=== PATIENT | male | born 1935 | race Two or more races ===

== ENCOUNTER 2017-05-28 06:16 | Outpatient (CLI) | payer OTHER ==
[~2017-05-28 06:16] MED LIST: ADVAIR 2501 DISK W/1; ASPIR 8181 MG; AZACOL; CLONAZEPAM0.5 MG; COZAAR50 MG; FENOFIBRATE54 MG; FOLIC ACID0.4 MG; LANSOPRAZOLE30 MG; LOSARTAN-HCTZ1 EAC1; MEMANTINE HCL10 MG; METOPROLOL SUCC50 MG
== END 2017-05-28 06:22 | disposition home or self-care (01) ==
LOC: LAB 06:16
DX: R31.29 Other microscopic hematuria (principal)

== ENCOUNTER 2017-05-28 08:00 | Outpatient (CLI) | payer OTHER | END 2017-05-28 08:08 | disposition home or self-care (01) | LOC: TOM 08:00 | DX: R31.0 Gross hematuria (principal); N32.81 Overactive bladder; F52.21 Male erectile disorder ==

== ENCOUNTER → 2017-07-06 | Outpatient (CLI) | payer OTHER | END | disposition home or self-care (01) | LOC: LAB 07:13 | DX: I10 Essential (primary) hypertension (principal); C64.9 Malignant neoplasm of unspecified kidney, except renal pelvis; J44.9 Chronic obstructive pulmonary disease, unspecified ==

== ENCOUNTER 2017-07-07 05:45 | Day surgery (SDC) | payer OTHER | END 2017-07-07 17:45 | disposition home or self-care (01) | LOC: CIR.AMB 05:45 | DX: C67.4 Malignant neoplasm of posterior wall of bladder (principal); N47.6 Balanoposthitis ==

== ENCOUNTER → 2017-07-10 | Emergency (ER) | payer OTHER ==
[~2017-07-10] VITALS: Ht 167.6 cm; Wt 68.9 kg
== END | disposition home or self-care (01) ==
LOC: ER 04:12
DX: R10.2 Pelvic and perineal pain (principal); T83.091A Other mechanical complication of indwelling urethral catheter, initial encounter; Y73.8 Miscellaneous gastroenterology and urology devices associated with adverse incidents, not elsewhere classified; Y92.89 Other specified places as the place of occurrence of the external cause

== ENCOUNTER 2018-04-20 11:11 | Outpatient (CLI) | payer OTHER | END 2018-04-20 11:25 | disposition home or self-care (01) | LOC: RAD 11:11 | DX: M25.511 Pain in right shoulder (principal) ==

== ENCOUNTER 2018-11-16 14:48 | Emergency (ER) | payer OTHER ==
[~2018-11-16] VITALS: Ht 167.6 cm; Wt 68.0 kg
[2018-11-16] MEDS ORDERED: ELIQUIS (16:08)
[2018-11-16] MEDS ORDERED: VITAMINA D (16:08)
== END 2018-11-16 18:56 | disposition home or self-care (01) ==
LOC: ER 14:48
DX: K50.90 Crohn's disease, unspecified, without complications (principal); R11.11 Vomiting without nausea

== ENCOUNTER → 2019-01-16 | Emergency (ER) | payer OTHER ==
[~2019-01-16] VITALS: Ht 167.6 cm; Wt 69.9 kg
[~2019-01-16] MED LIST changes: +ELIQUIS; +VITAMINA D
== END | disposition home or self-care (01) ==
LOC: ER 22:25
DX: K57.50 Diverticulosis of both small and large intestine without perforation or abscess without bleeding (principal); K80.80 Other cholelithiasis without obstruction; R10.31 Right lower quadrant pain; R10.32 Left lower quadrant pain

== ENCOUNTER 2019-04-11 12:32 | Emergency (ER) | payer OTHER ==
[~2019-04-11] VITALS: Ht 167.6 cm; Wt 67.1 kg
== END 2019-04-12 15:53 | disposition home or self-care (01) ==
LOC: ER 12:32
DX: K20.8 Other esophagitis (principal); K22.10 Ulcer of esophagus without bleeding; K44.9 Diaphragmatic hernia without obstruction or gangrene; K92.2 Gastrointestinal hemorrhage, unspecified; I10 Essential (primary) hypertension; C67.8 Malignant neoplasm of overlapping sites of bladder; K50.118 Crohn's disease of large intestine with other complication

== ENCOUNTER 2019-04-17 16:55 | Inpatient (IN) | payer OTHER ==
[2019-04-18] MEDS ORDERED: ELIQUIS2.5 MG (08:00)
[2019-04-18] MEDS ORDERED: MESALAMINE800 MG (08:01)
[2019-04-18] MEDS ORDERED: VITAMIN D10000 UNIT (08:02)
[2019-04-18] MEDS ORDERED: FOLIC ACID1 MG PO (08:16)
[2019-04-18] MEDS ORDERED: DOXAZOSIN MESYLA4 MG (08:20)
[2019-04-18] MEDS ORDERED: LOSARTAN POTAS100 MG (08:21)
[2019-04-18] MEDS ORDERED: TAMSULOSIN HCL0.4 MG (08:23)
[2019-04-18] MEDS ORDERED: DULOXETINE HCL60 MG (08:23)
[2019-04-20] MEDS ORDERED: CVS TUSSIN DM237 M2 PO (16:57)
[2019-04-20] MEDS ORDERED: AZITHROMYCIN500 MG PO ×2 (16:58)
[2019-04-20] MEDS ORDERED: NIFEDIPINE10 MG PO ×2 (16:58)
[2019-04-20] MEDS ORDERED: ROBITUSSIN15 MG PO ×2 (17:01)
== END 2019-04-20 17:21 | disposition home or self-care (01) | DRG 100 ==
LOC: MEDI 16:55
PROVIDERS: ADMIT Internal Medicine Cardiovascular Disease
PROC: B246ZZZ Ultrasonography of Right and Left Heart (ICD-10-PCS; 2019-04-17)
PROC: 8E0ZXY6 Isolation (ICD-10-PCS; 2019-04-17)
PROC: 3E0F7GC Introduction of Other Therapeutic Substance into Respiratory Tract, Via Natural or Artificial Opening (ICD-10-PCS; 2019-04-17)
PROC: 4A12X4Z Monitoring of Cardiac Electrical Activity, External Approach (ICD-10-PCS; 2019-04-17)
PROC: BW28ZZZ Computerized Tomography (CT Scan) of Head (ICD-10-PCS; principal; 2019-04-18)
PROC: B345ZZZ Ultrasonography of Bilateral Common Carotid Arteries (ICD-10-PCS; 2019-04-18)
PROC: B348ZZZ Ultrasonography of Bilateral Internal Carotid Arteries (ICD-10-PCS; 2019-04-18)
PROC: B030ZZZ Magnetic Resonance Imaging (MRI) of Brain (ICD-10-PCS; 2019-04-19)
DX: G40.209 Localization-related (focal) (partial) symptomatic epilepsy and epileptic syndromes with complex partial seizures, not intractable, without status epilepticus (principal); I50.43 Acute on chronic combined systolic (congestive) and diastolic (congestive) heart failure; I13.0 Hypertensive heart and chronic kidney disease with heart failure and stage 1 through stage 4 chronic kidney disease, or unspecified chronic kidney disease; C34.81 Malignant neoplasm of overlapping sites of right bronchus and lung; C79.11 Secondary malignant neoplasm of bladder; J44.1 Chronic obstructive pulmonary disease with (acute) exacerbation; I31.3 Pericardial effusion (noninflammatory); J45.41 Moderate persistent asthma with (acute) exacerbation; K51.80 Other ulcerative colitis without complications; J98.11 Atelectasis; J90 Pleural effusion, not elsewhere classified; I65.23 Occlusion and stenosis of bilateral carotid arteries; G31.89 Other specified degenerative diseases of nervous system; N18.2 Chronic kidney disease, stage 2 (mild); I11.0 Hypertensive heart disease with heart failure; I70.0 Atherosclerosis of aorta; K20.8 Other esophagitis; F02.80 Dementia in other diseases classified elsewhere, unspecified severity, without behavioral disturbance, psychotic disturbance, mood disturbance, and anxiety
CPT/HCPCS: 70552

== ENCOUNTER 2019-04-26 08:55 | Outpatient (CLI) | payer OTHER ==
[~2019-04-26 08:55] MED LIST changes: +AZITHROMYCIN500 MG PO; +CVS TUSSIN DM237 M2 PO; +DOXAZOSIN MESYLA4 MG; +DULOXETINE HCL60 MG; +ELIQUIS2.5 MG; +FOLIC ACID1 MG PO; +LOSARTAN POTAS100 MG; +MESALAMINE800 MG; +NIFEDIPINE10 MG PO; +ROBITUSSIN15 MG PO; +TAMSULOSIN HCL0.4 MG; +VITAMIN D10000 UNIT
== END 2019-04-26 09:10 | disposition home or self-care (01) ==
LOC: NUCLEAR 08:55
DX: C34.82 Malignant neoplasm of overlapping sites of left bronchus and lung (principal); C79.89 Secondary malignant neoplasm of other specified sites; M81.0 Age-related osteoporosis without current pathological fracture
CPT/HCPCS: 78815; A9552

== ENCOUNTER 2019-05-11 08:17 | Outpatient (CLI) | payer OTHER | END 2019-05-11 08:19 | disposition home or self-care (01) | LOC: SONOGRAMA 08:17 | DX: E04.1 Nontoxic single thyroid nodule (principal) ==

== ENCOUNTER 2019-09-21 08:22 | Emergency (ER) | payer OTHER ==
[~2019-09-21] VITALS: Ht 167.6 cm; Wt 68.0 kg
[2019-09-21] MEDS ORDERED: ASACOL HD800 MG (08:45)
== END 2019-09-22 09:19 | disposition home or self-care (01) ==
LOC: ER 08:22
DX: K56.690 Other partial intestinal obstruction (principal); K50.90 Crohn's disease, unspecified, without complications; K57.30 Diverticulosis of large intestine without perforation or abscess without bleeding; R10.32 Left lower quadrant pain

== ENCOUNTER 2020-08-21 09:14 | Outpatient (CLI) | payer OTHER ==
[~2020-08-21 09:14] MED LIST changes: +ASACOL HD800 MG
== END 2020-08-21 09:24 | disposition home or self-care (01) ==
LOC: SONOGRAMA 09:14 → MAMO-SONO 09:30
PROVIDERS: ATTEND Internal Medicine Cardiovascular Disease
DX: M25.512 Pain in left shoulder (principal)

== ENCOUNTER 2021-03-25 10:14 | Emergency (ER) | payer OTHER ==
[~2021-03-25] VITALS: Ht 162.6 cm; Wt 68.0 kg
[2021-03-25] MEDS ORDERED: ADALAT CC30 MG (10:29)
[2021-03-25] MEDS ORDERED: PANTOPRAZOLE SO40 M2 (10:29)
[2021-03-25] MEDS ORDERED: PAROXETINE7.5 MG (10:30)
[2021-03-25] MEDS ORDERED: CYMBALTA60 MG (10:30)
== END 2021-03-25 14:28 | disposition home or self-care (01) ==
LOC: ER 10:14
DX: K29.70 Gastritis, unspecified, without bleeding (principal); K50.90 Crohn's disease, unspecified, without complications; I10 Essential (primary) hypertension

== ENCOUNTER 2021-04-17 09:00 | Emergency (ER) | payer OTHER ==
[~2021-04-17] VITALS: Ht 152.4 cm; Wt 68.0 kg
[~2021-04-17 09:00] MED LIST changes: +ADALAT CC30 MG; +CYMBALTA60 MG; +PANTOPRAZOLE SO40 M2; +PAROXETINE7.5 MG
== END 2021-04-17 15:12 | disposition home or self-care (01) ==
LOC: ER 09:00
DX: K29.70 Gastritis, unspecified, without bleeding (principal); K50.90 Crohn's disease, unspecified, without complications; G30.9 Alzheimer's disease, unspecified; F02.80 Dementia in other diseases classified elsewhere, unspecified severity, without behavioral disturbance, psychotic disturbance, mood disturbance, and anxiety; E11.9 Type 2 diabetes mellitus without complications

== ENCOUNTER 2021-04-29 08:19 | Outpatient (CLI) | payer OTHER | END 2021-04-29 08:34 | disposition home or self-care (01) | LOC: SONOGRAMA 08:19 | PROVIDERS: ATTEND Internal Medicine Cardiovascular Disease | DX: K50.90 Crohn's disease, unspecified, without complications (principal); Z87.19 Personal history of other diseases of the digestive system ==

== ENCOUNTER → 2022-05-21 | Emergency (ER) | payer OTHER ==
[~2022-05-21] VITALS: Ht 167.6 cm; Wt 65.8 kg
[~2022-05-21] MED LIST changes: +CLONAZEPAM0.5 MG PO; +COZAAR100 MG PO; +LIPITOR40 M1 PO; +NAMENDA10 MG PO; +PAROXETINE7.5 MG PO; +PROTONIX40 M1 PO
== END | disposition home or self-care (01) ==
LOC: ER 16:42
DX: S09.8XXA Other specified injuries of head, initial encounter (principal); W18.30XA Fall on same level, unspecified, initial encounter; Y93.89 Activity, other specified; Y92.9 Unspecified place or not applicable; I10 Essential (primary) hypertension; S49.82XA Other specified injuries of left shoulder and upper arm, initial encounter; S79.812A Other specified injuries of left hip, initial encounter

== ENCOUNTER 2022-06-15 14:42 | Emergency (ER) | payer OTHER ==
[~2022-06-15] VITALS: Ht 167.6 cm; Wt 63.5 kg
[2022-06-15] MEDS ORDERED: ELIQUIS2.5 MG PO (15:21)
[2022-06-15] MEDS ORDERED: PROSCAR5 MG PO (15:21)
[2022-06-15] MEDS ORDERED: NIFEDIPINE20 MG PO (15:21)
[2022-06-15] MEDS ORDERED: VENALIV CAPLET1 EACH PO (15:22)
[2022-06-15] MEDS ORDERED: TAMS0.4C PO (15:22)
== END 2022-06-15 21:57 | disposition home or self-care (01) ==
LOC: ER 14:42
DX: S00.93XA Contusion of unspecified part of head, initial encounter (principal); T14.8XXA Other injury of unspecified body region, initial encounter; W18.30XA Fall on same level, unspecified, initial encounter; Y93.9 Activity, unspecified; Y92.89 Other specified places as the place of occurrence of the external cause; Y99.9 Unspecified external cause status; I10 Essential (primary) hypertension

== ENCOUNTER 2022-06-16 13:28 | Inpatient (IN) | payer OTHER ==
[~2022-06-16] VITALS: Ht 177.8 cm; Wt 81.6 kg
[~2022-06-16 13:28] MED LIST changes: +ELIQUIS2.5 MG PO; +NIFEDIPINE20 MG PO; +PROSCAR5 MG PO; +TAMS0.4C PO; +VENALIV CAPLET1 EACH PO
--- NOTE | 2022-06-16 14:10 | NUR ---
PACIENTE MASCULINO ALERTA Y ORIENTADA X3, LLEGA EN AMBULANCIA, REFIERE VOMITOS Y CAIDA Y SE LASTIMO LA FRENTE LÓPEZ LACERACION.
--- NOTE | 2022-06-16 15:44 | NUR ---
SE LE COLOCA GAZAS VASELINADAS EN AREAS DONDE PRESENTA ABRASIONES.
--- NOTE | 2022-06-16 15:44 | NUR ---
SE ORIENTA PTE Y FAMILIAR SOBRE LEXA DE MUESTRAS LAS CUALES SE EXTRAEN BAJO MEDIDAS ASEPTICAS,SE NOTIFICA CT PENDIENTE.
[2022-06-18] MEDS ORDERED: PROTONIX40 M1 PO (15:13)
[2022-06-18] MEDS ORDERED: PEPCID AC10 MG PO (15:15)
[2022-06-18] MEDS ORDERED: PRE PROTEIN1 EACH PO (15:19)
== END 2022-06-18 16:23 | disposition home or self-care (01) | DRG 378 ==
LOC: ER 13:28 → SEC-K 19:42 → MEDJ 20:16
PROVIDERS: ADMIT Internal Medicine Cardiovascular Disease; ATTEND Internal Medicine Cardiovascular Disease
PROC: BW28ZZZ Computerized Tomography (CT Scan) of Head (ICD-10-PCS; principal; 2022-06-16)
DX: K92.0 Hematemesis (principal); K50.90 Crohn's disease, unspecified, without complications; S00.93XA Contusion of unspecified part of head, initial encounter; E86.0 Dehydration; I10 Essential (primary) hypertension; G30.9 Alzheimer's disease, unspecified; F02.80 Dementia in other diseases classified elsewhere, unspecified severity, without behavioral disturbance, psychotic disturbance, mood disturbance, and anxiety; W18.2XXA Fall in (into) shower or empty bathtub, initial encounter; Y93.F1 Activity, caregiving, bathing; Y92.002 Bathroom of unspecified non-institutional (private) residence as the place of occurrence of the external cause

== ENCOUNTER 2022-07-07 13:59 | Inpatient (IN) | payer OTHER ==
[~2022-07-07] VITALS: Ht 167.6 cm; Wt 65.8 kg
[~2022-07-07 13:59] MED LIST changes: +PEPCID AC10 MG PO; +PRE PROTEIN1 EACH PO
[2022-07-11] MEDS ORDERED: TAMS0.4C PO (13:11)
[2022-07-11] MEDS ORDERED: LIPITOR40 M1 PO (13:13)
[2022-07-11] MEDS ORDERED: COZAAR100 MG PO (13:14)
[2022-07-11] MEDS ORDERED: NAMENDA10 MG PO ×2 (13:17→13:18)
[2022-07-11] MEDS ORDERED: TUSSIN MUC100 MG/5 M PO (13:18)
[2022-07-11] MEDS ORDERED: FAMOTIDINE20 MG PO (13:19)
[2022-07-11] MEDS ORDERED: DELZICOL400 M1 PO (13:19)
[2022-07-11] MEDS ORDERED: PANTOPRAZOLE SO40 MG PO (13:20)
[2022-07-11] MEDS ORDERED: MEGESTROL400 MG/11 PO (13:20)
[2022-07-11] MEDS ORDERED: FOLIC ACID1 MG PO (13:21)
[2022-07-11] MEDS ORDERED: Neurin-Sl Tablet Sl SL (13:21)
[2022-07-11] MEDS ORDERED: ELIQUIS2.5 MG PO (13:22)
[2022-07-11] MEDS ORDERED: ZOVIRAX800 MG PO (13:23)
[2022-07-11] MEDS ORDERED: Procardia Xl 30MG TA PO (13:23)
[2022-07-11] MEDS ORDERED: AZITHROMYCIN250 MG PO (13:31)
== END 2022-07-11 16:32 | disposition home or self-care (01) | DRG 74 ==
LOC: ER 13:59 → SEC-K 22:19 → MEDJ 23:44
PROVIDERS: ADMIT Internal Medicine Cardiovascular Disease; ATTEND Internal Medicine Cardiovascular Disease
PROC: B030ZZZ Magnetic Resonance Imaging (MRI) of Brain (ICD-10-PCS; principal; 2022-07-07)
PROC: B345ZZZ Ultrasonography of Bilateral Common Carotid Arteries (ICD-10-PCS; 2022-07-08)
PROC: B348ZZZ Ultrasonography of Bilateral Internal Carotid Arteries (ICD-10-PCS; 2022-07-08)
PROC: B24BYZZ Ultrasonography of Heart with Aorta using Other Contrast (ICD-10-PCS; 2022-07-08)
PROC: 4A12X45 Monitoring of Cardiac Electrical Activity, Ambulatory, External Approach (ICD-10-PCS; 2022-07-08)
DX: G51.0 Bell's palsy (principal); C34.90 Malignant neoplasm of unspecified part of unspecified bronchus or lung; K50.90 Crohn's disease, unspecified, without complications; R55 Syncope and collapse; E86.0 Dehydration; G30.9 Alzheimer's disease, unspecified; F02.80 Dementia in other diseases classified elsewhere, unspecified severity, without behavioral disturbance, psychotic disturbance, mood disturbance, and anxiety; G31.83 Neurocognitive disorder with Lewy bodies; I10 Essential (primary) hypertension
CPT/HCPCS: 70551

== ENCOUNTER 2022-07-11 20:56 | Emergency (ER) | payer OTHER ==
[~2022-07-11] VITALS: Ht 167.6 cm; Wt 54.4 kg
[~2022-07-11 20:56] MED LIST changes: +AZITHROMYCIN250 MG PO; +DELZICOL400 M1 PO; +FAMOTIDINE20 MG PO; +MEGESTROL400 MG/11 PO; +Neurin-Sl Tablet Sl SL; +PANTOPRAZOLE SO40 MG PO; +Procardia Xl 30MG TA PO; +TUSSIN MUC100 MG/5 M PO; +ZOVIRAX800 MG PO
== END 2022-07-12 00:53 | disposition home or self-care (01) ==
LOC: ER 20:56
DX: S91.119A Laceration without foreign body of unspecified toe without damage to nail, initial encounter (principal); W45.8XXA Other foreign body or object entering through skin, initial encounter; Y93.89 Activity, other specified; Y92.89 Other specified places as the place of occurrence of the external cause; Y99.9 Unspecified external cause status

== ENCOUNTER 2022-07-21 20:35 | Emergency (ER) | payer OTHER ==
[~2022-07-21] VITALS: Ht 177.8 cm; Wt 63.5 kg
[2022-07-22] MEDS ORDERED: ONDANSETRON ODT4 MG PO (04:48)
== END 2022-07-22 04:57 ==
LOC: ER 20:35
DX: K52.89 Other specified noninfective gastroenteritis and colitis (principal); I10 Essential (primary) hypertension; Z86.79 Personal history of other diseases of the circulatory system

== ENCOUNTER 2022-07-29 10:44 | Inpatient (IN) | payer OTHER ==
[~2022-07-29] VITALS: Ht 167.6 cm; Wt 119.7 kg
[~2022-07-29 10:44] MED LIST changes: +ONDANSETRON ODT4 MG PO
[2022-07-30] MEDS ORDERED: LOSARTAN-HCTZ1 EAC2 (13:58)
[2022-07-30] MEDS ORDERED: MEGESTROL400 MG/10 (13:58)
[2022-07-30] MEDS ORDERED: URSO250 MG (13:59)
[2022-07-30] MEDS ORDERED: STIOLTO RESPIMAT4 GM (13:59)
[2022-07-30] MEDS ORDERED: PAROXETINE HCL10 MG (13:59)
[2022-07-30] MEDS ORDERED: VENALIV CAPLET1 EACH (14:00)
[2022-07-30] MEDS ORDERED: NIFEDIPINE ER30 M1 (14:01)
[2022-08-07] MEDS ORDERED: TAMS0.4C PO (18:42)
[2022-08-07] MEDS ORDERED: STIOLTO RESPIMAT4 GM IH (18:43)
[2022-08-07] MEDS ORDERED: ELIQUIS2.5 MG PO (18:44)
[2022-08-07] MEDS ORDERED: ENALAPRIL MALEAT5 MG PO (18:44)
[2022-08-07] MEDS ORDERED: ISOSORBIDE DINIT5 MG PO (18:45)
[2022-08-07] MEDS ORDERED: NIFEDIPINE ER30 M1 PO (18:47)
[2022-08-07] MEDS ORDERED: PAROXETINE HCL10 MG PO (18:48)
[2022-08-07] MEDS ORDERED: RESTORIL15 MG PO (18:49)
[2022-08-07] MEDS ORDERED: GENTAFAIR5 ML OP (18:49)
[2022-08-07] MEDS ORDERED: MEGESTROL400 MG/11 PO (18:50)
[2022-08-07] MEDS ORDERED: PROTONIX40 M1 PO (18:50)
[2022-08-07] MEDS ORDERED: ZINC OXIDE TOP (18:51)
[2022-08-07] MEDS ORDERED: CLOTRIMAZOLE45 G1 TOP (18:51)
[2022-08-07] MEDS ORDERED: FOLIC ACID1 MG PO (18:51)
[2022-08-07] MEDS ORDERED: VENALIV CAPLET1 EACH PO (18:53)
== END 2022-08-07 20:52 | disposition home health service (06) | DRG 640 ==
LOC: ER 10:44 → MEDI 19:32
PROVIDERS: ADMIT Internal Medicine Cardiovascular Disease; ATTEND Internal Medicine Cardiovascular Disease
PROC: B24BYZZ Ultrasonography of Heart with Aorta using Other Contrast (ICD-10-PCS; 2022-07-29)
PROC: 4A12X4Z Monitoring of Cardiac Electrical Activity, External Approach (ICD-10-PCS; 2022-07-29)
PROC: BW24ZZZ Computerized Tomography (CT Scan) of Chest and Abdomen (ICD-10-PCS; 2022-07-31)
PROC: 02HV33Z Insertion of Infusion Device into Superior Vena Cava, Percutaneous Approach (ICD-10-PCS; 2022-08-02)
PROC: 0DH63UZ Insertion of Feeding Device into Stomach, Percutaneous Approach (ICD-10-PCS; principal; 2022-08-05)
PROC: 3E0G76Z Introduction of Nutritional Substance into Upper GI, Via Natural or Artificial Opening (ICD-10-PCS; 2022-08-06)
DX: E86.0 Dehydration (principal); G30.9 Alzheimer's disease, unspecified; J69.0 Pneumonitis due to inhalation of food and vomit; N18.4 Chronic kidney disease, stage 4 (severe); C78.00 Secondary malignant neoplasm of unspecified lung; E46 Unspecified protein-calorie malnutrition; N39.0 Urinary tract infection, site not specified; R63.39 Other feeding difficulties; R13.14 Dysphagia, pharyngoesophageal phase; I13.10 Hypertensive heart and chronic kidney disease without heart failure, with stage 1 through stage 4 chronic kidney disease, or unspecified chronic kidney disease; I49.5 Sick sinus syndrome; G51.0 Bell's palsy; F02.80 Dementia in other diseases classified elsewhere, unspecified severity, without behavioral disturbance, psychotic disturbance, mood disturbance, and anxiety; J44.9 Chronic obstructive pulmonary disease, unspecified; E86.9 Volume depletion, unspecified; H02.401 Unspecified ptosis of right eyelid; B96.1 Klebsiella pneumoniae [K. pneumoniae] as the cause of diseases classified elsewhere; B96.20 Unspecified Escherichia coli [E. coli] as the cause of diseases classified elsewhere; B96.5 Pseudomonas (aeruginosa) (mallei) (pseudomallei) as the cause of diseases classified elsewhere

== ENCOUNTER 2022-08-10 10:53 | Inpatient (IN) | payer OTHER ==
[~2022-08-10] VITALS: Ht 152.4 cm; Wt 45.4 kg
[~2022-08-10 10:53] MED LIST changes: +CLOTRIMAZOLE45 G1 TOP; +ENALAPRIL MALEAT5 MG PO; +GENTAFAIR5 ML OP; +ISOSORBIDE DINIT5 MG PO; +LOSARTAN-HCTZ1 EAC2; +MEGESTROL400 MG/10; +NIFEDIPINE ER30 M1; +NIFEDIPINE ER30 M1 PO; +PAROXETINE HCL10 MG; +PAROXETINE HCL10 MG PO; +RESTORIL15 MG PO; +STIOLTO RESPIMAT4 GM; +STIOLTO RESPIMAT4 GM IH; +URSO250 MG; +VENALIV CAPLET1 EACH; +ZINC OXIDE TOP
--- NOTE | 2022-08-10 11:48 | NUR ---
SE RECIBE PTE ALERTA, DESORIENTADO X3 EN AMBULANCIA ACOMPANADO DE [place], QUIEN REFIERE QUE PTE NO BRENNER PODIDO ORINAR DESDE EL VIERNES QUE FUE DADO DE ROSARIO DEL [facility], TAMBIEN REFIERE QUE EL RENETTA DE JULIO TUVO 7 EPISODIOS DE DIARREA, DOLOR ABDOMINAL Y TOS. SE MIDEN SV Y SE ACOMODA EN UNIDAD DE CRITICO
--- NOTE | 2022-08-10 11:59 | NUR ---
PACIENTE EVALUADO POR HECTOR. NEWMAN QUIEN ORDENA TRATAMIENTO. SE OERIENTA PACIENTE SOBRE TRATAMIENTO. SE CHUCK MUESTRAS DE BOLIVAR BAJO MEDIDAS ASEPTICAS, SE ADMINISTRAN MEDICAMENTOS NESTOR ORDEN MEDICA, SE COLOCA [place] CATETER CON EGRESO URINARIO DE 600 ML COLOR BEATRIZ. SE CONCECTA A MONITOR CARDIACO Y A OXIMETRIA. CAMA BAJA BARANDAS ELEVADAS POR PRECAUCION.
--- NOTE | 2022-08-10 14:05 | NUR ---
SE LE REALIZA EKG A PTE Y SE MANTIENE BAJO OBSERVACION.
--- NOTE | 2022-08-10 16:05 | NUR ---
PTE ALERTA Y ACTIVO EN CAMA CON BARANDAS ELEVADAS,CONECTADO A MONITOR CARDIACO Y OXIMETRIA,CON CANULA NASAL @ 2LTS,SIN DIFICULTAD RESP.AREA DE VENOPUNCION PATENTE Y KAMARI DE EDEMA CON FLUIDOS DE MANTENIMIENTO @ KVO.PTE CON [place] QUE PRESENTA ORINA AMARILLA INTENSA Y SEDIMENTACION.PANAL LIMPIO.PENDIENTE A EVALUACION DE HECTOR MYERS.SE MICHAEL BAJO OBSERVACION POR CAMBIOS.
== END 2022-08-15 20:21 | disposition expired | DRG 391 ==
LOC: ER 10:53 → MEDJ 22:05
PROVIDERS: ADMIT Internal Medicine Cardiovascular Disease; ATTEND Internal Medicine Cardiovascular Disease
PROC: 4A12X4Z Monitoring of Cardiac Electrical Activity, External Approach (ICD-10-PCS; principal; 2022-08-15)
DX: K52.29 Other allergic and dietetic gastroenteritis and colitis (principal); J69.0 Pneumonitis due to inhalation of food and vomit; K50.918 Crohn's disease, unspecified, with other complication; G30.9 Alzheimer's disease, unspecified; E86.0 Dehydration; E63.1 Imbalance of constituents of food intake; Z71.3 Dietary counseling and surveillance; R19.7 Diarrhea, unspecified; N40.1 Benign prostatic hyperplasia with lower urinary tract symptoms; R33.8 Other retention of urine; R13.14 Dysphagia, pharyngoesophageal phase; I11.9 Hypertensive heart disease without heart failure; I25.10 Atherosclerotic heart disease of native coronary artery without angina pectoris; Z93.1 Gastrostomy status; Z85.118 Personal history of other malignant neoplasm of bronchus and lung; Z74.01 Bed confinement status; I46.8 Cardiac arrest due to other underlying condition